=== PATIENT | female | born 2000 | race African-American/Black ===

== ENCOUNTER 2020-05-02 16:09 | Emergency (ER) | payer OTHER, SELFPAY ==
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
[2020-05-02 16:37] VITALS: BP 146/74; PULSE 85; RESP 15; TEMP 36.7; O2SAT 100
== END 2020-05-02 16:55 | disposition home or self-care (01) ==
LOC: ANHED 16:49
PROVIDERS: Emergency Provider Emergency Medicine
DX: S16.1XXA Strain of muscle, fascia and tendon at neck level, initial encounter (principal); S29.012A Strain of muscle and tendon of back wall of thorax, initial encounter; S39.012A Strain of muscle, fascia and tendon of lower back, initial encounter; V49.40XA Driver injured in collision with unspecified motor vehicles in traffic accident, initial encounter
CPT/HCPCS: 99283

== ENCOUNTER 2020-05-13 13:22 | Emergency (ER) | payer OTHER, SELFPAY ==
--- NOTE | ~2020-05-13 | XR_ITS ---
XR foot RT min 3V DATE: 05/13/2020 14:07 INDICATION: Right foot arch pain with weightbearing TECHNIQUE: 4 views COMPARISON: None FINDINGS: There is mild osteoarthritic change at the first metatarsophalangeal joint. No fracture, dislocation, periosteal reaction or bone destruction is detected. Mild posterior calcane al enthesopathy. IMPRESSION: Mild osteophytic change at the first metatarsophalangeal joint Mild posterior calcaneal enthesopathy Reviewed, dictated and finalized at location A.
[2020-05-13 13:25] VITALS: BP 138/86; PULSE 101; RESP 20; TEMP 36.7; O2SAT 98
[2020-05-13] MEDS: KETOROLAC 30 MG/ML VIAL (*BKC) 60 MG (14:10)
--- NOTE | 2020-05-13 14:38 | ED.LOWEXIN ---
HPI - Extremity Injury (Lower) General Chief Complaint: Extremity Injury, Lower <Emmanuel Perez PA-C - Last Filed: 05/13/20 14:45> Stated Complaint: right foot numbness <Emmanuel Perez PA-C - Last Filed: 05/13/20 14:45> Time Seen by Provider: 05/13/20 13:25 <Emmanuel Perez PA-C - Last Filed: 05/13/20 14:45> Source: patient <Emmanuel Perez PA-C - Last Filed: 05/13/20 14:45> Mode of arrival: ambulatory <Emmanuel Perez PA-C - Last Filed: 05/13/20 14:45> Limitations: no limitations <Emmanuel Perez PA-C - Last Filed: 05/13/20 14:45> History of Present Illness HPI Narrative: Patient is a 20-year-old female who presents to emergency department for evaluation of pain in the right forefoot patient has been having pain on the medial aspect and the lateral aspect of the arch of the foot which is worse with palpation activity and movement patient denies injury or trauma or similar occurrence in the past patient has been taking ibuprofen with improvement on arrival to emergency department patient presents in flip-flops in no distress. <Emmanuel Perez PA-C - Last Filed: 05/13/20 14:45> Related Data Allergies/Adverse Reactions: Allergies Allergy/AdvReac Type Severity Reaction Status Date / Time potato Allergy Unknown Verified 05/13/20 13:31 tomato Allergy Unknown Verified 05/13/20 13:31 <Emmanuel Perez PA-C - Last Filed: 05/13/20 14:45> Review of Systems Review of Systems: All systems reviewed & are unremarkable except as noted in HPI and below <Emmanuel Perez PA-C - Last Filed: 05/13/20 14:45> PMFSH Social History Social History: Social History Smoking status: Never smoker Alcohol intake: current Substance use: never Gender identity (if verbalized by the patient): Female <Emmanuel Perez PA-C - Last Filed: 05/13/20 14:45> Exam Narrative: Exam Narrative: GENERAL: Well-appearing, well-nourished, and in no acute distress. HEAD: Normocephalic, atraumatic. EYES: PERRLA and EOMI. ENT: Nares clear, no rhinorrhea or epistaxis. Mucous membranes moist. EXTREMITIES: Normal range of motion. No edema. Tenderness of the bilateral forefoot and along the plantar aspect of the foot no tenderness of the ankle no swelling or deformity SKIN: Warm, dry, no rash. NEURO: No focal deficits. Alert and oriented x3. Neurovascularly intact PSYCH: Normal mood and affect. <Emmanuel Perez PA-C - Last Filed: 05/13/20 14:45> Course Course Emergency Course: Patient in the room in no distress aware of case findings treatment plan and diagnosis agreeing to follow-up with podiatry and primary care for further evaluation felt appropriate for outpatient care at this time <ELIAS Cheung Last Filed: 05/13/20 14:45> Vital Signs Vital signs: Vital Signs Temperature 36.7 C 05/13/20 13:25 Pulse Rate 101 H 05/13/20 13:25 Respiratory Rate 05/13/20 13:25 Blood Pressure 138/86 05/13/20 13:25 Pulse Oximetry 98 05/13/20 13:25 Temperature 36.7 C 05/13/20 13:25 Pulse Rate 101 H 05/13/20 13:25 Respiratory Rate 05/13/20 13:25 Blood Pressure 138/86 05/13/20 13:25 Pulse Oximetry 98 05/13/20 13:25 <Emmanuel Perez PA-C - Last Filed: 05/13/20 14:45> Vital Signs Temperature 36.7 C 05/13/20 13:25 Pulse Rate 101 H 05/13/20 13:25 Respiratory Rate 05/13/20 13:25 Blood Pressure 138/86 05/13/20 13:25 Pulse Oximetry 98 05/13/20 13:25 Temperature 36.7 C 05/13/20 13:25 Pulse Rate 101 H 05/13/20 13:25 Respiratory Rate 05/13/20 13:25 Blood Pressure 138/86 05/13/20 13:25 Pulse Oximetry 98 05/13/20 13:25 <Ana Laura Fritz MD - Last Filed: 05/13/20 15:08> MDM - Extremity Injury (Lower) MDM Narrative Medical decision making narrative: Patients injury or pain is consistent with musculoskeletal etiology. No signs
[2020-05-13 14:56] VITALS: PULSE 94; RESP 12
== END 2020-05-13 14:56 | disposition home or self-care (01) ==
PROVIDERS: Emergency Provider Emergency Medicine
DX: M79.671 Pain in right foot (principal)
CPT/HCPCS: 73630; 99283; J1885

== ENCOUNTER 2020-09-20 08:19 | Emergency (ER) | payer OTHER, SELFPAY ==
--- NOTE | ~2020-09-20 | CT_ITS ---
EXAMINATION: CT abdomen pelvis wo con DATE: 09/20/2020 09:27 INDICATION: Periumbilical hernia. Right abdominal pain. TECHNIQUE: Computed tomography (CT) of the abdomen and pelvis was performed without intravenous contr ast. Automated exposure control and iterative reconstruction technique were employed. The dose-length product was 1516.24 mGy-cm. COMPARISON: None. FINDINGS: The visualized portions of the lung bases are clear without pneumonia or pleural effusion. The heart size is normal. No pericardial effusion. The liver, gallbladder, spleen, pancreas, adrenal glands, and kidneys are normal. There is no urolithiasis. There are no dilated loops of bowel. The ap pendix is normal. There is a 4.4 cm mass in the right adnexa. There is no periumbilical hernia. The b ones are unremarkable. IMPRESSION: 1. 4.4 cm mass in the right adnexa, most likely a hemorrhagic cyst. Consider pelvic ultrasound. Reviewed, dictated and finalized at location A. [facility] OPERATOR IMPRESSION: 1. 4.4 cm mass in the right adnexa, most likely a hemorrhagic cyst. Consider pe lvic ultrasound.
--- NOTE | ~2020-09-20 | US_ITS ---
EXAMINATION: US pelvic complete w TV EXAM DATE: 09/20/2020 10:41 INDICATION: Ovarian cyst. Abnormal CT. TECHNIQUE: Pelvic transabdominal and transvaginal sonogram was performed. There are multiple graysca le and Doppler images available for interpretation. Correlation is made to 09/20/2020. FINDINGS: Uterus measures 6.4 x 3.9 x 2.8 cm, and is morphologically normal. Endometrial stripe pollo sures 5 mm, within normal limits. There is small free pelvic fluid. Right adnexa: The ovary measures 4.7 x 3.3 x 2.5 cm and is morphologically normal, contains the domin ant physiologic follicle. Ovarian vascular color flow confirmed. Left adnexa: The ovary measures 2.6 x 1.8 x 2.3 cm and is morphologically normal. Ovarian vascular fl ow confirmed. IMPRESSION: 1. Unremarkable pelvic ultrasound exam. Reviewed, dictated and finalized at location B. STRIAL RECRUITER
[2020-09-20 08:27] VITALS: BP 131/80; PULSE 96; RESP 18; TEMP 36.3; O2SAT 100
--- NOTE | 2020-09-20 08:46 | ED.ABDPAIN ---
HPI - Abdominal Pain General Chief Complaint: Abdominal Pain Stated Complaint: I think I have a hernia , abd pressure Time Seen by Provider: 09/20/20 08:38 Source: patient Mode of arrival: ambulatory Limitations: no limitations History of Present Illness HPI narrative: 20 years old -[place] female, morbidly obese presents with possible periumbilical hernia, noticed 2 days ago. 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 Patient denies any fever, chills, nausea, vomiting, abdominal pain unless if she push her finger inside her bellybutton can trigger some slight discomfort. Related Data Allergies Allergy/AdvReac Type Severity Reaction Status Date / Time chocolate flavor Allergy Unknown Verified 09/20/20 08:34 potato Allergy Unknown Verified 05/13/20 13:31 tomato Allergy Unknown Verified 05/13/20 13:31 Review of Systems Review of Systems: Narrative: CONSTITUTIONAL: Denies fever, chills, or sweats. EYES: Denies visual changes, redness, or discharge. ENT: Denies rhinorrhea, congestion, sore throat, or otalgia. CARDIOVASCULAR: Denies chest pain, palpitations, or edema. RESPIRATORY: Denies cough or dyspnea. GASTROINTESTINAL: Denies abdominal pain, nausea, vomiting, or diarrhea. GENITOURINARY: Denies dysuria or hematuria. SKIN: Denies rash or itching. MUSCULOSKELETAL: Denies back pain, joint pain, or myalgia. NEUROLOGIC: Denies headache, numbness, or weakness. PSYCHIATRIC: Denies anxiety or depression. PMFSH Past Medical History Medical History (Updated 09/20/20 @ 08:52 by María Ruiz MD) Depression Pilonidal cyst with abscess Social History Social History Smoking status: Never smoker Alcohol intake: current Substance use: never Gender identity (if verbalized by the patient): Female Exam Narrative: Exam Narrative: General appearance: Well-developed, well-nourished, morbidly obese Skin: Normal color Head: Normocephalic, nontraumatic Eyes: Clear conjunctiva ENT: Oropharynx normal, ears normal, nose normal Neck: Supple, nontender Chest and respiratory: Airway patent, no respiratory distress, no accessory muscle use Heart: Regular rate/rhythm Abdomen: Soft, nontender, no organomegaly, quiet bowel sounds, no hernia laying down flat or standing up with straining Vascular: Normal peripheral pulses, normal capillary refill. Musculoskeletal: Normal range of motion, nontender back Neurologic: Alert and oriented ?3, [employer]ER is normal as tested, no gross motor deficit Course Course Emergency Course: Stable Vital Signs Vital signs: Vital Signs Temperature 36.3 C L 09/20/20 08:27 Pulse Rate 96 09/20/20 08:27 Respiratory Rate 18 09/20/20 08:27 Blood Pressure 131/80 09/20/20 08:27 Pulse Oximetry 100 09/20/20 08:27 Temperature 36.3 C L 09/20/20 08:27 Pulse Rate 96 09/20/20 08:27 Respiratory Rate 18 09/20/20 08:27 Blood Pressure 131/80 09/20/20 08:27 Pulse Oximetry 100 09/20/20 08:27 MDM - Abdominal Pain MDM Narrative Medical decision making narrative: Physical exam showed no signs of abdominal pain or periumbilical hernia. Muscular strain/strain is my concern. CT abdomen and pelvis without contrast ordered. Further plan to follow Differential Diagnosis Differential diagnosis: Likely other (Periumbilical hernia) Lab Data Labs: UCG Bedside Result Negative Reference Range: Negative Imaging Data Radiologist's impr
[2020-09-20 10:00] VITALS: BP 127/78; PULSE 89; RESP 18; O2SAT 100
== END 2020-09-20 11:21 | disposition home or self-care (01) ==
PROVIDERS: Emergency Provider Emergency Medicine
DX: S39.011A Strain of muscle, fascia and tendon of abdomen, initial encounter (principal); N94.89 Other specified conditions associated with female genital organs and menstrual cycle; E66.01 Morbid (severe) obesity due to excess calories; Z68.41 Body mass index [BMI] 40.0-44.9, adult; X50.0XXA Overexertion from strenuous movement or load, initial encounter
CPT/HCPCS: 74176; 76830; 76856; 81025; 99284